=== PATIENT | male | born 1965 | race Caucasian/White ===

== ENCOUNTER 2018-09-20 08:35 | Day surgery (SDC) | payer OTHER ==
[~2018-09-20] VITALS: Ht 170.2 cm; Wt 103.9 kg
[~2018-09-20 08:35] MED LIST: AMLO-145 PO; ASPI-650 PO; BUSP5TAB PO; BUSP5TAB2 PO; CITR454 PO; DEC4 PO; GEMF600T PO; GEMF600T8 PO; IBUP800T48 PO; LISI-471 PO; LOVAZA PO; LUBI24CA7 PO; MECL25TA PO; MECL25TA2 PO; METH750T93 PO; OMEP20CA16 PO; PROCTOZONE; QUET25TA PO; SERT25TA83 PO; TADA5TAB2 PO; TRAM-408 PO; TRAM50TA2 PO; ZOLP10TA PO; [UNRECOGNIZED DRUG - CODE] PO; [UNRECOGNIZED DRUG - OTHER]; [UNRECOGNIZED DRUG - OTHER]; [UNRECOGNIZED DRUG - OTHER] PO; zetia PO
[2018-09-20 09:24] VITALS: Ht 170.2 cm; Wt 103.9 kg
[2018-09-20] MEDS ORDERED: MIRALAX (09:34)
[2018-09-20 09:40] VITALS: BP 155/85; PULSE 83; RESP 18
--- NOTE | 2018-09-20 09:51 | PREAC ---
Date/Time of Note Date/Time of Note DATE: 09/20/18 TIME: 09:50 Anesthesia Eval and Record Evaluation Time Pre-Procedure Interview DATE: 09/20/18 TIME: 09:50 Age 53 Sex male NPO: 8 hrs Preoperative diagnosis reflux esophagitis, + occult blood Planned procedure EGD/Colonoscopy Past Medical History Past Medical History: Includes (DJD) Cardio: HTN, Dyslipidemia GI: GERD Surgery & Anesthesia Issues No known issue Meds Anticoagulation: No Beta Kelly within 24 hr: No Reason Beta Kelly not given: Pt. not on B-Kelly Reported Medications [Miralax] No Conflict Check 09/20/18 Hydrocodone Bit/Acetaminophen (Lortab 7.5-500 Tablet) 1 Tab Tablet, 1 TAB PO Q4NARC PRN 1-2 TABLETS PO Q 4-6 HRS PRN PAIN. 03/03/13 Omeprazole* (Omeprazole*) 20 Mg Capsule.dr, 20 MG PO BID 02/28/13 Gemfibrozil* (Gemfibrozil*) 600 Mg Tablet, PO BID 04/14/11 Aspirin (Aspirin) 81 Mg Tablet, PO HS 04/14/11 Lisinopril* (Lisinopril*) 20 Mg Tablet, PO DAILY 04/14/11 Discontinued Reported Medications [Medrox Patch] No Conflict Check APPLY TO AFFECTED AREA DIRECTED. 03/03/13 [Flurblprofen 15%] No Conflict Check 03/03/13 [Proctozone 2.5%] No Conflict Check TOPICAL CREAM, USE DIRECTED. 03/03/13 [Salese Los] No Conflict Check, 1 TAB PO TAKE 1 TABLET ORALLY AND LET IT DISSOLVE IN YOUR MOUTH 1 HOUR AFTER MEALS. 03/03/13 [Lovaza] No Conflict Check, 1000 MG PO TAKE 4 TABLETS PO AFTER MEALS. 03/03/13 Dexamethasone* (Decadron*) 4 Mg Tab, 4 MG PO DAILY GIVEN ON 02/28/13. TAKE 1 TABLET PO DAILY FOR 6 DAYS. TAPER OFF DIRECTED. 03/03/13 Ibuprofen* (Motrin*) 800 Mg Tab, 800 MG PO Q6 PRN 1 TABLET Q 6-8 HRS PRN FEVER OR PAIN. 03/03/13 Methocarbamol* (Robaxin*) 750 Mg Tablet, 750 MG PO QID 03/03/13 Tadalafil (Cialis) 5 Mg Tablet, 5 MG PO DAILY 02/28/13 Sertraline Hcl* (Sertraline Hcl*) 25 Mg Tablet, 25 MG PO DAILY 02/28/13 Meclizine Hcl (Medi-Meclizine) 25 Mg Tablet, 25 MG PO Q8 02/28/13 [zetia] No Conflict Check, 10 MG PO DAILY 02/28/13 Amlodipine Besylate* (Amlodipine Besylate*) 5 Mg Tablet, 5 MG PO DAILY 02/28/13 Methylcellulose (With Sugar) (Citrucel Clear-Mix Powder) 275 Gm Powder, 275 GM PO TID 02/28/13 Lubiprostone* (Amitiza*) 24 Mcg Capsule, 24 MCG PO DAILY 02/28/13 Buspirone Hcl* (Buspirone Hcl*) 5 Mg Tablet, 5 MG PO BID 02/28/13 Zolpidem Tartrate (Ambien Brian) 10 Mg Tablet, 10 MG PO DAILY 02/28/13 Tramadol Hcl (Rybix Odt) 50 Mg Tab.rapdis, 50 MG PO BID 02/28/13 Gemfibrozil* (Lopid*) 600 Mg Tablet, 600 MG PO BID 02/28/13 Quetiapine Fumarate* (Seroquel*) 25 Mg Tablet, PO HS 04/14/11 Buspirone Hcl (Buspirone Hcl) 5 Mg Tablet, PO BID 04/14/11 Sertraline Hcl* (Sertraline Hcl*) 25 Mg Tablet, PO DAILY 04/14/11 Tramadol HCl (Tramadol HCl) 50 Mg Tablet, PO Q8 PRN 04/14/11 Zolpidem Tartrate* (Ambien*) 10 Mg Tablet, PO HS PRN 04/14/11 Meclizine Hcl* (Antivert*) 25 Mg Tablet, PO Q8 PRN 04/14/11 Meds reviewed: Yes Allergies Coded Allergies: No Known Drug Allergies (Verified Allergy, 05/28/11) Allergies Reviewed: Yes Labs/Studies Labs Reviewed: Reviewed by anesthesiologist test: N/A Pre-procedure Exam Last vitals Vital Signs Date Temp Pulse Resp B/P (MAP) Pulse Ox O2 O2 Flow FiO2 Time Delivery Rate 09/20/18 98.0 83 18 155/85 96 Room Air 09:40 (108) Airway: Adequate mouth opening, Adequate thyromental dist Mallampati: Mallampati II Teeth: Normal (multiple missing teeth) Lung: Normal Heart: Normal ASA Physical Status ASA physical status: 2 Emergency: None Planned Anesthetic General/MAC: MAC Pre-operative Attestations Prior to commencing anesthesia and surgery, the patient was re-evaluated, there was verification of: *The patient's identity *The results of appropriate recent lab work and preoperative vital signs *The above evaluation not changing prior to induction *Anesthetic plan, risk benefits, alternative and complications discussed with patient/family; questions answered; patient/family understands, accepts and wishes to proceed. VANNESSA DURHAM Sep 20, 2018 09:51
[2018-09-20] MEDS ORDERED: PROPOFOL 60 ML ONE (09:52)
[2018-09-20] MEDS ORDERED: ALBUTEROL 0.083% (NEB) 2.5 MG/3 ML AMP HHN PRN (10:00)
[2018-09-20] MEDS ORDERED: ACETAMINOPHEN 500 MG TAB PO PRN (10:00)
[2018-09-20] MEDS ORDERED: FENTAnyl 50 MCG/ML VIAL IV PRN (10:00)
[2018-09-20] MEDS ORDERED: ONDANSETRON 4 MG INJ IV PRN (10:00)
--- NOTE | 2018-09-20 10:22 | PAC ---
Date/Time of Note Date/Time of Note DATE: 09/20/18 TIME: 10:17 Post-Anesthesia Notes Post-Anesthesia Note Last documented vital signs Vital Signs Date Temp Pulse Resp B/P (MAP) Pulse Ox O2 O2 Flow FiO2 Time Delivery Rate 09/20/18 98.0 98 83 71 18 18 155/85 96 99 Room 09:40 101 (108) 103 Air NC 6L Activity: WNL Respiratory function: WNL Cardiovascular function: WNL Mental status: Baseline Pain reasonably controlled: Yes Hydration appropriate: Yes Nausea/Vomiting absent: Yes VANNESSA DURHAM Sep 20, 2018 10:22
[2018-09-20 10:52] VITALS: BP 134/89; PULSE 70; RESP 20
== END 2018-09-20 13:12 | disposition home or self-care (01) ==
LOC: GIL 08:35
PROVIDERS: ATTEND Internal Medicine Gastroenterology
DX: K92.1 Melena (principal); K64.8 Other hemorrhoids; K57.30 Diverticulosis of large intestine without perforation or abscess without bleeding; K21.0 Gastro-esophageal reflux disease with esophagitis; I10 Essential (primary) hypertension; E78.5 Hyperlipidemia, unspecified
CPT/HCPCS: 88305; 88312